=== PATIENT | female | born 1965 | race Caucasian/White ===

== ENCOUNTER 2017-11-19 15:04 | Emergency (ER) | payer SELFPAY ==
[~2017-11-19] VITALS: Ht 165.1 cm; Wt 81.6 kg
[~2017-11-19 15:04] MED LIST: ATORVASTATIN CA10 MG; BUSPIRONE HCL15 M1 PO; BUSPIRONE HCL5 M1 PO; BUSPIRONE HCL5 MG PO; CARBAMAZEPINE100 M2 PO; CHANTIX 1 MG1 MG; LEVOTHYROXINE0.1 M1 PO; MEDROL DOSEPAK1 PAC PO; MONTELUKAST SOD10 M1 PO; MONTELUKAST SOD10 MG PO; MOTRIN 600 MG600 MG PO; NAPROXEN500 MG PO; NASONEX0.05 MG/Ac NAS; NICOTINE PATCH1 EAC2 TOP; NOVAPLUS V0.09 MG/Ac INH; PROAIR HFA0.09 MG/Ac INH; QUETIAPINE FUM100 M1 PO; SEROQUEL XR150 MG PO; SEROQUEL XR200 MG PO; SYMBICORT 160/41 PUF; SYMBICORT 16010.2 GM INH; SYNTHROID100 MCG PO; TESSALON PERLE100 MG PO; TOPAMAX200 M1 PO; TOPIRAMATE25 MG PO; ZITHROMAX Z-PA250 M1 PO
[2017-11-19 15:08] VITALS: BP 153/84
--- NOTE | 2017-11-19 15:09 | ED EYE COMPLAINT ---
History of Present Illness General Chief Complaint: Eye Problems Stated Complaint: ?PINK EYE Source: patient Exam Limitations: no limitations Vital Signs & Intake/Output Vital Signs & Intake/Output Vital Signs Date Time Temp Pulse Resp B/P B/P Pulse O2 O2 Flow FiO2 Mean Ox Delivery Rate 11/19 1508 96.3 101 20 153/84 94 Room Air ED Intake and Output 11/20 0000 11/19 1200 Intake Total 0 Output Total Balance 0 Intake, Oral 0 Patient 180 lb Weight Weight Reported by Patient Measurement Method Allergies Coded Allergies: NO KNOWN ALLERGIES (06/27/15) Reconcile Medications Buspirone HCl 15 MG TABLET 15 MG PO 0800,2200 anxiety Carbamazepine 100 MG TAB.CHEW 200 MG PO 0800,2000 stabilization of moods Levothyroxine Sodium (Synthroid) 100 MCG TABLET 0.1 MG PO DAILY AC thyroid supplement Methylprednisolone. (Medrol) 4 MG TAB.DS.PK 1 DP PO AD RASH 6 on day 1 then reduce by one tablet daily until gone Nicotine (Nicotine Patch) 14 MG/24 HOUR PATCH.TD24 14 MG TOP 0800 reduce cigarette cravings Polytrim (Polytrim Eye Drops) 10,000 UNIT-1 MG/ML DROPS 1 GTT OPH Q6 CONJUNCTIVITIS Quetiapine Fumarate 100 MG TABLET 300 MG PO 2200 stabilize moods Topiramate (Topamax) 200 MG TABLET 25 MG PO 0800,2200 stabilize mood/reduce migraine Triage Note: PT TO ED FOR PINK EYE TO RIGHT EYE. Triage Nurses Notes Reviewed? yes Onset: Abrupt Duration: hour(s): Timing: recent history Injury Environment: home HPI: 52-year-old female comes into the emergency room with complaints of bilateral eye pain and drainage. Patient reports that she had positive exposure with her grandchildren for conjunctivitis/pinkeye. She reports she woke up this morning and she had crusting of her eyes shut and she had purulent drainage coming out. Denies any vision loss. Itchy and painful. She comes in for further evaluation. She also reports that while she was here she's noticed that she's had this rash on her arms and lower legs for a few weeks. Itchy. Denies any fever chills or vomiting. (Delmer SMITH,Maynor) Past History Travel History Traveled to [place] past 21 day No Medical History Any Pertinent Medical History? see below for history Neurological: migraine, restless leg syndrome EENT: NONE Cardiovascular: NONE Respiratory: asthma Gastrointestinal: NONE Hepatic: hX HEP C Renal: NONE Musculoskeletal: NONE Psychiatric: alcohol dependence, bipolar disease, substance abuse (extensive crack cocaine/MJ) Endocrine: hypothyroidism Blood Disorders: NONE Cancer(s): NONE EVALUATION ANALYST/Reproductive: trichomonas History of MRSA: No History of VRE: No History of CDIFF: No Surgical History Surgical History: non-contributory, N Psychosocial History Who do you live with Other (see notes) What is your primary language Divehi Tobacco Use: Current Daily Use Daily Tobacco Use Amount/Type: => 5 Cigarettes daily ETOH Use: denies use Illicit Drug Use: denies illicit drug use Family History Hx Contributory? No (Maynor Foreman) Review of Systems Review of Systems Constitutional: Reports: no symptoms. Eyes: Reports: see HPI. Ear: Reports: no symptoms. Nose: Reports: no symptoms. Mouth: Reports: no symptoms. Throat: Reports: no symptoms. Respiratory: Reports: no symptoms. Cardiovascular: Reports: no symptoms. GI: Reports: no symptoms. Genitourinary: Reports: no symptoms. Musculoskeletal: Reports: no symptoms. Skin: Reports: see HPI. Neurological/Psychological: Reports: no symptoms. Hematologic/Endocrine: Reports: no symptoms. Immunologic/Allergic: Reports: no symptoms. All Other Systems: Reviewed and Negative (Maynor Foreman) Physical Exam General Appearance: well developed/nourished, mild distress General Inspection: normal inspection Eyelid: normal inspection Conjunctiva/Sclera: normal inspection Cornea: normal inspection EOM: intact Pupil: normal accommodation, normal pupil, PERRL General Inspection: normal inspection Eyelid: normal inspection Conjunctiva/Sclera: normal inspection Cornea: normal inspection EOM: intact Pupil: normal accommodation, normal pupil, PERRL Physical Exam Head: atraumatic Nose: normal inspection Mouth/Throat: normal mouth inspection Neck: normal inspection Cardiovascular/Respiratory: no respiratory distress Neurologic/Psych: awake, alert, oriented x 3, normal mood/affect Skin: normal color, warm/dry, rash, patient has a maculopapular rash located on her forearms and her ankles bilaterally, erythematous, (Maynor Foreman) Progress Differential Diagnosis: corneal abrasion, corneal foreign body, conjunctivitis, contact dermatitis, viral exanthem, Plan of Care: 11/19/2017 3:55:27 PM Patient clinically looks well. In no apparent distress. Patient's put on a Medrol Dosepak for nonspecific rash. Patient was started on antibiotic eyedrops. Clinically the eyes at this time do not appear to be injected however the patient is told me she had purulent drainage in the morning as well as crusting of her eyes shut and a positive exposure to pinkeye. therefore the patient will be treated prophylactically (Maynor Foreman) Departure Departure Disposition: HOME OR SELF CARE Condition: Stable Clinical Impression Primary Impression: Conjunctivitis Secondary Impressions: Rash and nonspecific skin eruption Referrals: Milvia Turpin APRN (PCP/Family) Additional Instructions: Take Medrol Dosepak and Polytrim drops as prescribed. Follow-up with primary care doctor. Please go over all results of today's visit with your primary care doctor. Contact your primary care doctor to let them know you were here in the emergency room. There may be nonspecific findings which may not be related to your visit today here in the emergency room but may require further evaluation and chronic monitoring by your primary care doctor. If you had a laceration today the chance of foreign body always remains. You should follow-up with your primary care doctor for recheck in 3-5 days for a wound check. If you had an x-ray done there is a chance that a fracture could have been missed on initial read and you should follow-up with your primary care doctor for repeat x-rays if symptoms persist. If your blood pressure was elevated here in the emergency room please have rechecked by [facility] primary care doctor within the next 48. If you were prescribed a narcotic here in the emergency room or any type of controlled substances you're not allowed to drive while taking this medication or operate any type of heavy machinery. Narcotics can make you feel lightheaded dizziness nausea and can cause constipation. You may need to medicinal plant picker a stool softener. Thank you for choosing [facility] emergency room. Please return to the emergency room immediately if you have any other concerns worsening of symptoms. Departure Forms: Customer Survey General Discharge Information Prescriptions: Current Visit Scripts Polytrim (Polytrim Eye Drops) 1 GTT OPH Q6 #10 ML Methylprednisolone. (Medrol) 1 DP PO AD #1 DP 6 on day 1 then reduce by one tablet daily until gone (Maynor Foreman) PA/BRANCH SERVICE REPRESENTATIVE Co-Sign Statement Statement: ED Attending supervision documentation- I saw and evaluated the patient. I have also reviewed all the pertinent lab results and diagnostic results. I agree with the findings and the plan of care as documented in the PA's/BRANCH SERVICE REPRESENTATIVE's documentation. x I have reviewed the ED Record and agree with the PA's/BRANCH SERVICE REPRESENTATIVE's documentation. [] Additions or exceptions (if any) to the PAs/BRANCH SERVICE REPRESENTATIVE's note and plan are summarized below: [] (Triston BLACKWELL,Med)
[2017-11-19] MEDS ORDERED: MEDROL4 M2 PO (15:19)
[2017-11-19] MEDS ORDERED: POLYTRIM EYE DR10 ML OPH (15:19)
== END 2017-11-19 16:03 ==
LOC: ERH 15:04
DX: H10.9 Unspecified conjunctivitis (principal); R21 Rash and other nonspecific skin eruption; F17.210 Nicotine dependence, cigarettes, uncomplicated